=== PATIENT | female | born 1990 | race Caucasian/White ===

== ENCOUNTER 2021-01-03 10:09 | Emergency (ER) | payer BC, OTHER ==
--- NOTE | 2021-01-03 11:48 | CR ---
Abdominal series: PA view of the chest was obtained as well as supine and upright views of the abdomen. Comparison: No previous studies available. Heart size and mediastinum are normal. Lungs are clear with no acute parenchymal change. No free air is seen. Bowel gas pattern shows no evidence of obstruction. There are scattered air-fluid levels being seen within the bowel which are mostly colon and possibly distal small bowel. Several phleboliths are seen within the pelvis. No acute osseous abnormality is seen. Impression: 1. Air-fluid levels within the distal small bowel and colon. Please correlate if patient has any symptoms of gastroenteritis. 2. Other portions of the abdominal series appear within normal limits. Diagnostic code #3
--- NOTE | 2021-01-03 12:50 | EDM.PDOC ---
ED HPI GENERAL MEDICAL PROBLEM - General Chief Complaint: Abdominal Pain Stated Complaint: ABD PAIN/CONSTIPATED Time Seen by Provider: 01/03/21 11:04 Source of Information: Reports: Patient History Limitations: Reports: No Limitations - History of Present Illness INITIAL COMMENTS - FREE TEXT/NARRATIVE: The patient presents with generalized abdominal pain and constipation. One month ago she started having trouble with constipation. She went to [facility] last week and was told to take miralax. She had a bowel movement 2 days ago and again today but she still feels full and has pain to the left abdomen. She also has some dysuria. She has no fever, chills, cough, congestion, runny nose, chest pain, shortness of breath or diarrhea. She has no medical problems. Onset: Gradual Duration: Week(s): Location: Reports: Abdomen Quality: Reports: Sharp Severity: Moderate Improves with: Reports: None Worsens with: Reports: None Associated Symptoms: Denies: Chest Pain, Cough, Fever/Chills, Headaches, Nausea/Vomiting, Shortness of Breath Left Upper Abdomen Pain Score (Numeric/FACES): 4 - Related Data Allergies Allergy/AdvReac Type Severity Reaction Status Date / Time No Known Allergies Allergy Verified 01/03/21 11:08 Home Meds: Home Meds cephALEXin [Keflex] 500 mg PO BID #10 cap 01/03/21 [Rx] polyethylene glycoL 3350 [MiraLAX] 17 gm PO DAILY 01/03/21 [History] Past Medical History Gastrointestinal History: Reports: Chronic Constipation - Infectious Disease History Infectious Disease History: Reports: Chicken Pox Social & Family History - Family History Family Medical History: No Pertinent Family History - Tobacco Use Tobacco Use Status *Q: Never Tobacco User Second Hand Smoke Exposure: No - Caffeine Use Caffeine Use: Reports: Soda - Recreational Drug Use Recreational Drug Use: No ED ROS GENERAL - Review of Systems Review Of Systems: See Below Constitutional: Reports: No Symptoms HEENT: Reports: No Symptoms Respiratory: Reports: No Symptoms Cardiovascular: Reports: No Symptoms Endocrine: Reports: No Symptoms GI/Abdominal: Reports: Abdominal Pain, Constipation. Denies: Diarrhea, Nausea, Vomiting : Reports: No Symptoms Musculoskeletal: Reports: No Symptoms ED EXAM, GI/ABD - Physical Exam Exam: See Below Exam Limited By: No Limitations General Appearance: Alert, No Apparent Distress Ears: Normal External Exam Nose: Normal Inspection Head: Atraumatic, Normocephalic Neck: Normal Inspection Respiratory/Chest: No Respiratory Distress, Lungs Clear, Normal Breath Sounds Cardiovascular: Regular Rate, Rhythm, No Edema, No Murmur GI/Abdominal Exam: Soft, No Organomegaly, No Mass, Tender (mild left sided tenderness) Course - Vital Signs Last Recorded V/S: Last Vital Signs Temp 97.8 F 01/03/21 11:03 Pulse 78 01/03/21 11:03 Resp 16 01/03/21 11:03 BP 129/87 01/03/21 11:03 Pulse Ox 100 01/03/21 11:03 - Orders/Labs/Meds Labs: Laboratory Tests 01/03/21 01/03/21 01/03/21 Range/Units 11:45 11:45 11:45 WBC 9.44 (3.98-10.04) K/mm3 RBC 5.18 (3.98-5.22) M/mm3 Hgb 15.0 (11.2-15.7) gm/dl Hct 42.6 (34.1-44.9) % MCV 82.2 (79.4-94.8) fl MCH 29.0 (25.6-32.2) pg MCHC 35.2 (32.2-35.5) g/dl RDW Std Deviation 36.5 (36.4-46.3) fL Plt Count 320 (182-369) K/mm3 MPV 8.8 L (9.4-12.3) fl Neut % (Auto) 68.0 (34.0-71.1) % Lymph % (Auto) 25.2 (19.3-51.7) % Treasure % (Auto) 5.5 (4.7-12.5) % Eos % (Auto) 0.8 (0.7-5.8) Baso % (Auto) 0.2 (0.1-1.2) % Neut # (Auto) 6.41 H (1.56-6.13) K/mm3 Lymph # (Auto) 2.38 (1.18-3.74) K/mm3 Treasure # (Auto) 0.52 H (0.24-0.36) K/mm3 Eos # (Auto) 0.08 (0.04-0.36) K/mm3 Baso # (Auto) 0.02 (0.01-0.08) K/mm3 Sodium 140 (136-145) mEq/L Potassium 3.8 (3.5-5.1) mEq/L Chloride 104 (98-107) mEq/L Carbon Dioxide 23 (21-32) mEq/L Anion Gap 16.8 H (5-15) BUN 13 (7-18) mg/dL Creatinine 0.8 (0.55-1.02) mg/dL Est Cr Clr Drug Dosing 97.13 mL/min Estimated GFR (MDRD) > 60 (>60) mL/min BUN/Creatinine Ratio 16.3 (14-18) Glucose 80 (74-106) mg/dL Calcium 9.2 (8.5-10.1) mg/dL Total Bilirubin 0.3 (0.2-1.0) mg/dL AST 13 L (15-37) U/L ALT 20 (14-59) U/L Alkaline Phosphatase 32 L (46-116) U/L Total Protein 7.9 (6.4-8.2) g/dl Albumin 3.8 (3.4-5.0) g/dl Globulin 4.1 gm/dL Albumin/Globulin Ratio 0.9 L (1-2) Lipase 78 (73-393) U/L TSH 3rd Generation 2.355 (0.358-3.74) uIU/mL HCG, Qual (NEGATIVE) Urine Color Yellow (Yellow) Urine Appearance Clear (Clear) Urine pH 5.5 (5.0-8.0) Ur Specific [employer] > or = 1.030 (1.005-1.030) Urine Protein Negative (Negative) Urine Glucose (UA) Negative (Negative) Urine Ketones Negative (Negative) Urine Occult Blood Negative (Negative) Urine Nitrite Negative (Negative) Urine Bilirubin Negative (Negative) Urine Urobilinogen 0.2 (0.2-1.0) Ur Leukocyte Esterase Trace H (Negative) Urine RBC 0-5 (0-5) /hpf Urine WBC 5-10 H (0-5) /hpf Ur Squamous Epith Cells 0-5 (0-5) /hpf Urine Bacteria Few (FEW) /hpf Urine Mucus Rare (FEW) /hpf 01/03/21 Range/Units 11:45 WBC (3.98-10.04) K/mm3 RBC (3.98-5.22) M/mm3 Hgb (11.2-15.7) gm/dl Hct (34.1-44.9) % MCV (79.4-94.8) fl MCH (25.6-32.2) pg MCHC (32.2-35.5) g/dl RDW Std Deviation (36.4-46.3) fL Plt Count (182-369) K/mm3 MPV (9.4-12.3) fl Neut % (Auto) (34.0-71.1) % Lymph % (Auto) (19.3-51.7) % Treasure % (Auto) (4.7-12.5) % Eos % (Auto) (0.7-5.8) Baso % (Auto) (0.1-1.2) % Neut # (Auto) (1.56-6.13) K/mm3 Lymph # (Auto) (1.18-3.74) K/mm3 Treasure # (Auto) (0.24-0.36) K/mm3 Eos # (Auto) (0.04-0.36) K/mm3 Baso # (Auto) (0.01-0.08) K/mm3 Sodium (136-145) mEq/L Potassium (3.5-5.1) mEq/L Chloride (98-107) mEq/L Carbon Dioxide (21-32) mEq/L Anion Gap (5-15) BUN (7-18) mg/dL Creatinine (0.55-1.02) mg/dL Est Cr Clr Drug Dosing mL/min Estimated GFR (MDRD) (>60) mL/min BUN/Creatinine Ratio (14-18) Glucose (74-106) mg/dL Calcium (8.5-10.1) mg/dL Total Bilirubin (0.2-1.0) mg/dL AST (15-37) U/L ALT (14-59) U/L Alkaline Phosphatase (46-116) U/L Total Protein (6.4-8.2) g/dl Albumin (3.4-5.0) g/dl Globulin gm/dL Albumin/Globulin Ratio (1-2) Lipase (73-393) U/L TSH 3rd Generation (0.358-3.74) uIU/mL HCG, Qual Negative (NEGATIVE) Urine Color (Yellow) Urine Appearance (Clear) Urine pH (5.0-8.0) Ur Specific [employer] (1.005-1.030) Urine Protein (Negative) Urine Glucose (UA) (Negative) Urine Ketones (Negative) Urine Occult Blood (Negative) Urine Nitrite (Negative) Urine Bilirubin (Negative) Urine Urobilinogen (0.2-1.0) Ur Leukocyte Esterase (Negative) Urine RBC (0-5) /hpf Urine WBC (0-5) /hpf Ur Squamous Epith Cells (0-5) /hpf Urine Bacteria (FEW) /hpf Urine Mucus (FEW) /hpf - Re-Assessments/Exams Free Text/Narrative Re-Assessment/Exam: 01/03/21 12:48 I ordered labs, x-ray and a UA. Her x-ray shows some signs of gastroenteritis. Her CBC looks good. Her anion gap was elevated at 16.8. Her lipase is normal. Her TSH is negative. Her HCG is negative. Her UA shows a UTI. I will treat her with keflex and have her follow up with a provider in our hospital. Departure - Departure Time of Disposition: 12:55 Disposition: Home, Self-Care 01 Condition: Good Clinical Impression: UTI (urinary tract infection) Qualifiers: Urinary tract infection type: acute cystitis Hematuria presence: without hematuria Qualified Code(s): N30.00 - Acute cystitis without hematuria Constipation Qualifiers: Constipation type: other constipation type Qualified Code(s): K59.09 - Other constipation - Discharge Information *PRESCRIPTION DRUG MONITORING PROGRAM REVIEWED*: Not Applicable *COPY OF PRESCRIPTION DRUG MONITORING REPORT IN PATIENT BALDO: Not Applicable Prescriptions: cephALEXin [Keflex] 500 mg PO BID #10 cap Referrals: PCP,None [Primary Care Provider] - Neli Araya MD [Physician] - 1 Week Additional Instructions: Drink plenty of fluids. Take the keflex 2 times per day for 5 days. Keep taking your miralax. Take magnesium citrate 1/2 bottle today to help with a bowel movement. If you do not have a bowel movement by tomorrow take the rest of the bottle. Drink a couple glasses of water after taking the magnesium citrate. Please return if you are worse. Follow up with Dr Araya. Sepsis Event Note (ED) - Evaluation Sepsis Screening Result: No Definite Risk - Focused Exam Vital Signs: Vital Signs Temp Pulse Resp BP Pulse Ox 02/02/21 11:03 97.8 F 78 16 129/87 100
== END 2021-01-03 13:07 | disposition home or self-care (01) ==
LOC: JD.ED 10:09
DX: N30.00 Acute cystitis without hematuria (principal); K59.09 Other constipation
CPT/HCPCS: 36415; 74022; 74022-26; 80053; 81001; 83690; 84443; 84703; 85025; 99283-25; 99284